=== PATIENT | female | born 1965 | race Caucasian/White ===

== ENCOUNTER 2018-04-29 10:53 | Day surgery (SDC) | payer MEDICARE ==
[2018-04-29] MEDS ORDERED: Xylocaine-Mpf 2% 5 Ml Vial IJ ONE (10:54)
[2018-04-29] MEDS ORDERED: DIPRIVAN 200 MG/20 ML IV ONE (10:54)
[2018-04-29] MEDS ORDERED: Depo-Medrol 40 MG/ML IM ONE (10:54)
[2018-04-29] MEDS ORDERED: Lactated Ringers 1,000 ML IV ONE (14:52)
--- NOTE | 2018-04-29 16:02 | XRAY ---
32 seconds fluoroscopy time in surgery for bilateral L3-S1 MBB.
--- NOTE | 2018-04-30 14:38 | XRAY ---
Intraoperative fluoroscopy was provided for 32 seconds. Posterior fusion hardware is seen at L3- L4. Moderate degenerative disc disease is seen at L2-L3. 2 intraoperative C-arm images were obtained. Posterior spinal needle tips are seen projected over the expected course of the left and right L3-S1 nerve roots. Correlate with intraoperative findings/report.
== END 2018-04-29 13:35 | disposition home or self-care (01) ==
LOC: SDC-PAIN 10:53
PROVIDERS: ATTEND Psychiatry & Neurology Pain Medicine
DX: M47.817 Spondylosis without myelopathy or radiculopathy, lumbosacral region (principal)
CPT/HCPCS: 64493; 64494; 64495; 72020; 77003; J1030; J2704

== ENCOUNTER 2018-05-20 11:50 | Day surgery (SDC) | payer MEDICARE ==
[2018-05-20] MEDS ORDERED: DIPRIVAN 200 MG/20 ML IV ONE (11:51)
[2018-05-20] MEDS ORDERED: Depo-Medrol 40 MG/ML IM ONE (11:51)
[2018-05-20] MEDS ORDERED: Marcaine 0.5% SDV 10 ML IJ ONE (11:51)
[2018-05-20] MEDS ORDERED: Lactated Ringers 1,000 ML IV ONE (14:53)
--- NOTE | 2018-05-20 14:54 | XRAY ---
Indication: Bilateral SI joint injection. Intraoperative fluoroscopy was provided for 12 seconds. 4 digital spot images submitted for interpretation demonstrates a posterior needle tip projecting over the inferior left and right SI joints. Correlate with intraoperative findings/report.
--- NOTE | 2018-05-20 14:55 | XRAY ---
12 seconds fluoroscopy time in surgery for bilateral SI joint injections.
== END 2018-05-20 14:00 | disposition home or self-care (01) ==
LOC: SDC-PAIN 11:50
PROVIDERS: ATTEND Psychiatry & Neurology Pain Medicine
DX: M46.1 Sacroiliitis, not elsewhere classified (principal)
CPT/HCPCS: 27096; 72020; 77002; J1030; J2704; G0260

== ENCOUNTER 2018-07-08 09:02 | Day surgery (SDC) | payer MEDICARE ==
[2018-07-08] MEDS ORDERED: Sodium Chloride 0.9(Preservative Free) 10 ML IJ ONE (09:03)
[2018-07-08] MEDS ORDERED: DIPRIVAN 200 MG/20 ML IV ONE (09:03)
[2018-07-08] MEDS ORDERED: Depo-Medrol 40 MG/ML IM ONE (09:03)
[2018-07-08] MEDS ORDERED: Xylocaine 1% Vial 30 ML PF IJ ONE (09:03)
[2018-07-08] MEDS ORDERED: Lactated Ringers 1,000 ML IV ONE (12:03)
--- NOTE | 2018-07-08 12:17 | XRAY ---
29 seconds fluoroscopy time in surgery for L5-S1 KATHRYN.
--- NOTE | 2018-07-08 12:17 | XRAY ---
Indication: L5-S1 KATHRYN. Intraoperative fluoroscopy was provided for 29 seconds. 2 digital spot images submitted for interpretation demonstrates midline posterior spinal needle tip projecting posterior to the L5-S1 interspace. Correlate with intraoperative findings/report. Incidental L3-L4 posterior spinal hardware.
[2018-07-08] MEDS ORDERED: TORAdol 30 mg Injection ONE (12:19)
== END 2018-07-08 12:32 | disposition home or self-care (01) ==
LOC: SDC-PAIN 09:02
PROVIDERS: ATTEND Psychiatry & Neurology Pain Medicine
DX: M54.16 Radiculopathy, lumbar region (principal); Z79.899 Other long term (current) drug therapy
CPT/HCPCS: 72020; 77003; J1030; J1885; J2001; J2704

== ENCOUNTER 2018-10-21 11:58 | Day surgery (SDC) | payer MEDICARE ==
[2018-10-21] MEDS ORDERED: Ketamine HCl 50 MG/ML IV ONE (11:59)
[2018-10-21] MEDS ORDERED: DIPRIVAN 200 MG/20 ML IV ONE (11:59)
[2018-10-21] MEDS ORDERED: Sodium Chloride 0.9(Preservative Free) 10 ML IJ ONE (11:59)
[2018-10-21] MEDS ORDERED: Depo-Medrol 40 MG/ML IM ONE (11:59)
[2018-10-21] MEDS ORDERED: Lactated Ringers 1,000 ML IV ONE (14:24)
--- NOTE | 2018-10-21 16:27 | XRAY ---
37 seconds fluoroscopy time in surgery for bilateral L3 KATHRYN.
--- NOTE | 2018-10-22 05:14 | XRAY ---
Indication: Bilateral L3 KATHRYN. Intraoperative fluoroscopy was provided for 37 seconds. There appears to be evidence of posterior surgical fusion at L3-L4 with short paired metallic rods and 4 pedicle screws. 6 digital spot images submitted for interpretation demonstrate posterior needle tips projected over the expected course of the right and left L3 nerve roots. A small of contrast has been injected for needle tip placement. Correlate with intraoperative findings/or.
== END 2018-10-21 13:50 | disposition home or self-care (01) ==
LOC: SDC-PAIN 11:58
PROVIDERS: ATTEND Psychiatry & Neurology Pain Medicine
DX: M54.16 Radiculopathy, lumbar region (principal); K21.9 Gastro-esophageal reflux disease without esophagitis; E03.9 Hypothyroidism, unspecified; G47.30 Sleep apnea, unspecified; E78.5 Hyperlipidemia, unspecified; N18.9 Chronic kidney disease, unspecified; F32.9 Major depressive disorder, single episode, unspecified; D64.9 Anemia, unspecified
CPT/HCPCS: 64483; 72020; 77003; 84703; J1030; J2704; Q9966

== ENCOUNTER 2019-06-16 15:05 | Day surgery (SDC) | payer MEDICARE ==
[2019-06-16] MEDS ORDERED: Xylocaine 1% Vial 30 ML PF IJ ONE (15:06)
[2019-06-16] MEDS ORDERED: Marcaine 0.5% SDV 10 ML IJ ONE (15:06)
[2019-06-16] MEDS ORDERED: Depo-Medrol 40 MG/ML IM ONE (15:06)
--- NOTE | 2019-06-16 16:56 | XRAY ---
Indication: Right hip and greater trochanter bursa injections. Intraoperative fluoroscopy was provided for 28 seconds. 2 digital spot images submitted for interpretation demonstrates needle tip just lateral to the right femur head and a second needle tip just lateral to the greater trochanter. Small amount of contrast injected for both needle tip placement. Correlate with intraoperative findings/report.
--- NOTE | 2019-06-16 16:59 | XRAY ---
28 seconds fluoroscopy time in surgery for right hip bursa and intertrochanteric injection.
== END 2019-06-16 16:40 | disposition home or self-care (01) ==
LOC: SDC-PAIN 15:05
PROVIDERS: ATTEND Psychiatry & Neurology Pain Medicine
DX: M70.61 Trochanteric bursitis, right hip (principal); M16.11 Unilateral primary osteoarthritis, right hip; M25.551 Pain in right hip; N18.9 Chronic kidney disease, unspecified; K21.9 Gastro-esophageal reflux disease without esophagitis; E03.9 Hypothyroidism, unspecified; G47.30 Sleep apnea, unspecified; E78.5 Hyperlipidemia, unspecified; D64.9 Anemia, unspecified; F41.8 Other specified anxiety disorders; Z79.899 Other long term (current) drug therapy
CPT/HCPCS: 20610; 73502; 77002; 84703; J1030; J2001; Q9966

== ENCOUNTER 2019-07-14 12:41 | Day surgery (SDC) | payer MEDICARE ==
[2019-07-14] MEDS ORDERED: Depo-Medrol 40 MG/ML IM ONE (12:42)
[2019-07-14] MEDS ORDERED: Marcaine 0.5% SDV 10 ML IJ ONE (12:42)
[2019-07-14] MEDS ORDERED: Ketamine HCl 50 MG/ML ONE (13:50)
[2019-07-14] MEDS ORDERED: DIPRIVAN 200 MG/20 ML IV ONE (13:50)
[2019-07-14] MEDS ORDERED: Lactated Ringers 1,000 ML IV ONE (14:53)
--- NOTE | 2019-07-14 15:00 | XRAY ---
Indication: Bilateral L4-S1 RFA. Intraoperative fluoroscopy was provided for 7 seconds. Single digital spot image submitted for interpretation demonstrates posterior needle tips projecting over the expected course of the left and right L4-S1 nerve roots. Correlate with intraoperative findings/report. Incidental L3-L4 bilateral posterior fusion hardware and intervertebral spacer.
--- NOTE | 2019-07-14 16:24 | XRAY ---
7 seconds fluoroscopy time in surgery for bilateral L4-S1 MBB.
== END 2019-07-14 14:17 | disposition home or self-care (01) ==
LOC: SDC-PAIN 12:41
PROVIDERS: ATTEND Psychiatry & Neurology Pain Medicine
DX: M47.816 Spondylosis without myelopathy or radiculopathy, lumbar region (principal); K21.9 Gastro-esophageal reflux disease without esophagitis; E03.9 Hypothyroidism, unspecified; D64.9 Anemia, unspecified; E78.5 Hyperlipidemia, unspecified; N18.9 Chronic kidney disease, unspecified; G47.30 Sleep apnea, unspecified; Z79.899 Other long term (current) drug therapy
CPT/HCPCS: 64493; 64494; 72020; 77002; 84703; J1030; J2704

== ENCOUNTER 2019-08-11 08:37 | Day surgery (SDC) | payer MEDICARE ==
[2019-08-11] MEDS ORDERED: Marcaine 0.5% SDV 10 ML IM ONE (08:38)
[2019-08-11] MEDS ORDERED: Depo-Medrol 40 MG/ML IM ONE (08:38)
[2019-08-11] MEDS ORDERED: Xylocaine 1% Vial 30 ML PF IJ ONE (08:38)
[2019-08-11] MEDS ORDERED: Ketamine HCl 50 MG/ML ONE (10:23)
[2019-08-11] MEDS ORDERED: DIPRIVAN 200 MG/20 ML IV ONE (10:23)
--- NOTE | 2019-08-11 12:21 | XRAY ---
Indication: Left L4-S1 CASTING MOLDER. Intraoperative fluoroscopy was provided for 25 seconds. 3 digital spot images submitted for interpretation demonstrates posterior needle tips projecting over the expected course of the left L4-S1 nerve roots. Correlate with intraoperative findings/report. Incidental partially visualized bilateral L3-L4 fusion hardware.
--- NOTE | 2019-08-11 12:30 | XRAY ---
25 seconds fluoroscopy time in surgery for left L4-S1 RFA.
[2019-08-11] MEDS ORDERED: Lactated Ringers 1,000 ML IV ONE (14:44)
== END 2019-08-11 10:52 | disposition home or self-care (01) ==
LOC: SDC-PAIN 08:37
PROVIDERS: ATTEND Psychiatry & Neurology Pain Medicine
DX: M47.816 Spondylosis without myelopathy or radiculopathy, lumbar region (principal); M47.817 Spondylosis without myelopathy or radiculopathy, lumbosacral region; K21.9 Gastro-esophageal reflux disease without esophagitis; D64.9 Anemia, unspecified; E03.9 Hypothyroidism, unspecified; G47.30 Sleep apnea, unspecified; E78.5 Hyperlipidemia, unspecified; N18.9 Chronic kidney disease, unspecified; F41.8 Other specified anxiety disorders; Z79.899 Other long term (current) drug therapy
CPT/HCPCS: 64635; 64636; 72100; 77002; 84703; J1030; J2001; J2704

== ENCOUNTER 2019-10-20 10:31 | Day surgery (SDC) | payer MEDICARE ==
[2019-10-20] MEDS ORDERED: Xylocaine 1% Vial 30 ML PF IJ ONE (10:32)
[2019-10-20] MEDS ORDERED: Marcaine 0.5% SDV 10 ML IJ ONE (10:32)
[2019-10-20] MEDS ORDERED: Depo-Medrol 40 MG/ML IM ONE (10:32)
[2019-10-20] MEDS ORDERED: DIPRIVAN 200 MG/20 ML IV ONE (11:32)
[2019-10-20] MEDS ORDERED: Ketamine HCl 50 MG/ML ONE (11:32)
[2019-10-20] MEDS ORDERED: Lactated Ringers 1,000 ML IV ONE (15:17)
--- NOTE | 2019-10-20 16:41 | XRAY ---
26 seconds fluoroscopy time in surgery for right L4-S1 RFA.
--- NOTE | 2019-10-23 19:26 | XRAY ---
Indication: Right L4-S1 RFA. Intraoperative fluoroscopy was provided for 26 seconds. 3 digital spot images reveal evidence of a posterior surgical fixation device with 4 pedicle screws at L3-L4. The images also demonstrate posterior needle tips projected over the expected course of the right L4-S1 nerve roots. Correlate with intraoperative findings/report.
== END 2019-10-20 12:05 | disposition home or self-care (01) ==
LOC: SDC-PAIN 10:31
PROVIDERS: ATTEND Psychiatry & Neurology Pain Medicine
DX: M47.816 Spondylosis without myelopathy or radiculopathy, lumbar region (principal); E78.5 Hyperlipidemia, unspecified; G47.30 Sleep apnea, unspecified; E03.9 Hypothyroidism, unspecified; K21.9 Gastro-esophageal reflux disease without esophagitis; D64.9 Anemia, unspecified; Z79.899 Other long term (current) drug therapy
CPT/HCPCS: 64635; 64636; 72100; 77002; 84703; J1030; J2001; J2704

== ENCOUNTER 2020-05-03 13:20 | Day surgery (SDC) | payer MEDICARE ==
[2020-05-03] MEDS ORDERED: Depo-Medrol 40 MG/ML IM ONE (13:21)
[2020-05-03] MEDS ORDERED: Xylocaine 1% Vial 30 ML PF IJ ONE (13:21)
[2020-05-03] MEDS ORDERED: BUPIVACAINE 0.5% VIAL IJ ONE (13:21)
[2020-05-03] MEDS ORDERED: Lactated Ringers 1,000 ML IV ONE (16:10)
--- NOTE | 2020-05-03 16:47 | XRAY ---
Indication: Right hip bursa and intra-articular injections. Intraoperative fluoroscopy was provided for 30 seconds. 2 digital spot images submitted for interpretation demonstrates needle tip just lateral to the right femur head and a second needle tip lateral to the greater trochanter. Small amount of contrast injected for both needle tip placement. Correlate with intraoperative findings/report.
--- NOTE | 2020-05-03 16:54 | XRAY ---
30 seconds fluoroscopy time in surgery for the right hip greater trochanter and intra-articular injections.
== END 2020-05-03 16:27 | disposition home or self-care (01) ==
LOC: SDC-PAIN 13:20
PROVIDERS: ATTEND Psychiatry & Neurology Pain Medicine
DX: M70.61 Trochanteric bursitis, right hip (principal); E78.5 Hyperlipidemia, unspecified; E03.9 Hypothyroidism, unspecified; G47.30 Sleep apnea, unspecified; D64.9 Anemia, unspecified; K21.9 Gastro-esophageal reflux disease without esophagitis; N18.9 Chronic kidney disease, unspecified; Z79.899 Other long term (current) drug therapy
CPT/HCPCS: 20610; 73502; 77002; J1030; J2001; Q9966

== ENCOUNTER 2020-08-09 11:32 | Day surgery (SDC) | payer MEDICARE ==
[2020-08-09] MEDS ORDERED: Depo-Medrol 40 MG/ML IM ONE (11:33)
[2020-08-09] MEDS ORDERED: BUPIVACAINE 0.5% VIAL IJ ONE (11:33)
[2020-08-09] MEDS ORDERED: DIPRIVAN 200 MG/20 ML IV ONE (12:06)
[2020-08-09] MEDS ORDERED: Ketamine HCl 50 MG/ML ONE (12:06)
--- NOTE | 2020-08-09 13:32 | XRAY ---
Indication: Right greater trochanter injection. Intraoperative fluoroscopy provided for 17 seconds. Single digital spot image submitted for interpretation demonstrates needle tip just lateral to the right greater trochanter. Small amount of contrast injected for needle tip placement. Correlate with intraoperative findings/report.
--- NOTE | 2020-08-09 13:34 | XRAY ---
17 seconds fluoroscopy time in surgery for injection of the greater trochanter of the right hip.
[2020-08-09] MEDS ORDERED: Lactated Ringers 1,000 ML IV ONE (16:14)
== END 2020-08-09 12:45 | disposition home or self-care (01) ==
LOC: SDC-PAIN 11:32
PROVIDERS: ATTEND Psychiatry & Neurology Pain Medicine
DX: M70.61 Trochanteric bursitis, right hip (principal); K21.9 Gastro-esophageal reflux disease without esophagitis; D64.9 Anemia, unspecified; E03.9 Hypothyroidism, unspecified; G47.30 Sleep apnea, unspecified; E78.5 Hyperlipidemia, unspecified; F32.9 Major depressive disorder, single episode, unspecified; N18.9 Chronic kidney disease, unspecified; Z79.899 Other long term (current) drug therapy
CPT/HCPCS: 20610; 73501; 77002; J1030; J2704; Q9966

== ENCOUNTER 2020-09-27 10:46 | Day surgery (SDC) | payer MEDICARE ==
[2020-09-27] MEDS ORDERED: Depo-Medrol 40 MG/ML IM ONE (10:47)
[2020-09-27] MEDS ORDERED: BUPIVACAINE 0.5% VIAL IJ ONE (10:47)
[2020-09-27] MEDS ORDERED: DIPRIVAN 200 MG/20 ML IV ONE ×2 (12:13→12:20)
--- NOTE | 2020-09-27 16:12 | XRAY ---
12 seconds fluoroscopy time in surgery for left SI joint injection.
[2020-09-27] MEDS ORDERED: Lactated Ringers 1,000 ML IV ONE (16:40)
--- NOTE | 2020-09-28 22:14 | XRAY ---
Indication: Left SI joint injection. Intraoperative fluoroscopy was provided for 12 seconds. 2 digital spot images submitted for interpretation demonstrate a posterior needle tip projected over the inferior aspect of the left sacroiliac joint. Correlate with intraoperative findings/report.
== END 2020-09-27 12:25 | disposition home or self-care (01) ==
LOC: SDC-PAIN 10:46
PROVIDERS: ATTEND Psychiatry & Neurology Pain Medicine
DX: M46.1 Sacroiliitis, not elsewhere classified (principal); E78.5 Hyperlipidemia, unspecified; N18.9 Chronic kidney disease, unspecified; G47.30 Sleep apnea, unspecified; K21.9 Gastro-esophageal reflux disease without esophagitis; E03.9 Hypothyroidism, unspecified; Z79.899 Other long term (current) drug therapy
CPT/HCPCS: 27096; 72020; 77002; G0260; J1030; J2704

== ENCOUNTER 2020-11-22 15:16 | Day surgery (SDC) | payer MEDICARE ==
[2020-11-22] MEDS ORDERED: BUPIVACAINE 0.5% VIAL IJ ONE (15:17)
[2020-11-22] MEDS ORDERED: Xylocaine 1% Vial 30 ML PF IJ ONE (15:17)
[2020-11-22] MEDS ORDERED: Depo-Medrol 40 MG/ML IM ONE (15:17)
--- NOTE | 2020-11-23 11:35 | XRAY ---
32 seconds fluoroscopy time in surgery for bilateral injections of the greater trochanters of the hips.
--- NOTE | 2020-11-26 18:06 | XRAY ---
Indication: Bilateral greater trochanteric bursa injections. Intraoperative fluoroscopy was provided for 32 seconds. 3 digital spot images submitted for interpretation demonstrate a needle tip projected over the lateral margin of the greater trochanter of the right hip. Some contrast has been injected for needle tip placement. In addition, a needle tip is seen projected over the lateral margin of the greater trochanter of the left hip. Some contrast has been injected for needle tip placement. Correlate with intraoperative findings/report.
== END 2020-11-22 17:23 | disposition home or self-care (01) ==
LOC: SDC-PAIN 15:16
PROVIDERS: ATTEND Psychiatry & Neurology Pain Medicine
DX: M70.62 Trochanteric bursitis, left hip (principal); M70.61 Trochanteric bursitis, right hip; Z79.899 Other long term (current) drug therapy; D64.9 Anemia, unspecified; E03.9 Hypothyroidism, unspecified; G47.30 Sleep apnea, unspecified; E78.5 Hyperlipidemia, unspecified; N18.9 Chronic kidney disease, unspecified; F32.9 Major depressive disorder, single episode, unspecified; K58.9 Irritable bowel syndrome, unspecified
CPT/HCPCS: 20610; 73521; 77002; J1030; J2001; Q9966

== ENCOUNTER 2021-01-17 12:17 | Day surgery (SDC) | payer MEDICARE ==
[2021-01-17] MEDS ORDERED: BUPIVACAINE 0.5% VIAL IJ ONE (12:18)
[2021-01-17] MEDS ORDERED: DIPRIVAN 200 MG/20 ML IV ONE (13:29)
[2021-01-17] MEDS ORDERED: Lactated Ringers 1,000 ML IV ONE (13:49)
--- NOTE | 2021-01-17 17:00 | XRAY ---
17 seconds fluoroscopy time in surgery for left L4-S1 MBB.
--- NOTE | 2021-01-19 09:47 | XRAY ---
Indication: Left L4-S1 MBB. Intraoperative fluoroscopy was provided for 17 seconds. A single digital spot image submitted for interpretation demonstrates posterior spinal needle tips projected over the expected course of the left and right L4-S1 nerve roots. Correlate with intraoperative findings/report. Incidentally, orthopedic fusion hardware is seen at L3-L4.
== END 2021-01-17 13:55 | disposition home or self-care (01) ==
LOC: SDC-PAIN 12:17
PROVIDERS: ATTEND Psychiatry & Neurology Pain Medicine
DX: M47.816 Spondylosis without myelopathy or radiculopathy, lumbar region (principal); Z79.899 Other long term (current) drug therapy
CPT/HCPCS: 64493; 64494; 72020; 77002; J2704

== ENCOUNTER 2021-02-28 09:25 | Day surgery (SDC) | payer MEDICARE ==
[2021-02-28] MEDS ORDERED: BUPIVACAINE 0.5% VIAL IJ ONE (09:26)
[2021-02-28] MEDS ORDERED: Xylocaine 1% Vial 30 ML PF IJ ONE (09:26)
[2021-02-28] MEDS ORDERED: Depo-Medrol 40 MG/ML IM ONE (09:26)
[2021-02-28] MEDS ORDERED: DIPRIVAN 200 MG/20 ML IV ONE ×2 (11:02→11:20)
--- NOTE | 2021-02-28 13:22 | XRAY ---
Indication: Left L4-S1 RFA. Intraoperative fluoroscopy provided for 42 seconds. 3 digital spot images submitted for interpretation demonstrates posterior needle tips projecting over the expected left L4-S1 nerve roots. Correlate with intraoperative findings/report. Partially visualized bilateral L3-L4 posterior spinal fusion hardware.
--- NOTE | 2021-02-28 14:23 | XRAY ---
42 seconds of fluoroscopy was used in surgery for a left L4-S1 RFA.
[2021-02-28] MEDS ORDERED: Lactated Ringers 1,000 ML IV ONE (17:26)
== END 2021-02-28 11:40 | disposition home or self-care (01) ==
LOC: SDC-PAIN 09:25
PROVIDERS: ATTEND Psychiatry & Neurology Pain Medicine
DX: M47.816 Spondylosis without myelopathy or radiculopathy, lumbar region (principal); Z79.899 Other long term (current) drug therapy
CPT/HCPCS: 64635; 64636; 72100; 77002; J1030; J2001; J2704

== ENCOUNTER 2021-04-13 11:12 | Day surgery (SDC) | payer MEDICARE ==
[2021-04-13] MEDS ORDERED: BUPIVACAINE 0.5% VIAL IJ ONE (11:13)
[2021-04-13] MEDS ORDERED: Depo-Medrol 40 MG/ML IM ONE (11:13)
[2021-04-13] MEDS ORDERED: Sodium Chloride 0.9% 10 ML FLUSH Syringe IJ ONE (11:13)
[2021-04-13] MEDS ORDERED: Lactated Ringers 1,000 ML IV ONE (12:12)
[2021-04-13] MEDS ORDERED: DIPRIVAN 200 MG/20 ML IV ONE (12:14)
--- NOTE | 2021-04-13 14:09 | XRAY ---
Indication: Left greater trochanter bursa injection. Intraoperative fluoroscopy provided for 8 seconds. Single digital spot image obtained prone demonstrates needle tip lateral to the left greater trochanter. Small amount of contrast injected for needle tip placement. Correlate with intraoperative findings/report.
--- NOTE | 2021-04-13 14:09 | XRAY ---
Indication: Left L4-S1 transforaminal KATHRYN. Intraoperative fluoroscopy provided for 23 seconds. 4 digital spot images submitted for interpretation demonstrates posterior needle tips projecting over the left L3 and L4 nerve roots. Small amount of contrast injected for both needle tip placement. Correlate with intraoperative findings/report. Incidental bilateral L3-L4 posterior spinal fusion hardware.
--- NOTE | 2021-04-13 14:13 | XRAY ---
23 seconds fluoroscopy time in surgery for left L4-S1 transforaminal KATHRYN.
--- NOTE | 2021-04-13 14:13 | XRAY ---
8 seconds fluoroscopy time in surgery for injection of the greater trochanter of the left hip.
== END 2021-04-13 13:00 | disposition home or self-care (01) ==
LOC: SDC-PAIN 11:12
PROVIDERS: ATTEND Psychiatry & Neurology Pain Medicine
DX: M54.16 Radiculopathy, lumbar region (principal); M16.12 Unilateral primary osteoarthritis, left hip; K21.9 Gastro-esophageal reflux disease without esophagitis; D64.9 Anemia, unspecified; E03.9 Hypothyroidism, unspecified; E78.5 Hyperlipidemia, unspecified; F41.9 Anxiety disorder, unspecified; F32.9 Major depressive disorder, single episode, unspecified; N18.9 Chronic kidney disease, unspecified; Z79.899 Other long term (current) drug therapy
CPT/HCPCS: 20610; 64483; 64484; 72100; 73501; 77002; 77003; J1030; J2704; Q9966

== ENCOUNTER 2021-08-08 08:11 | Day surgery (SDC) | payer MEDICARE ==
[2021-08-08] MEDS ORDERED: Depo-Medrol 40 MG/ML IM ONE (09:08)
[2021-08-08] MEDS ORDERED: BUPIVACAINE 0.5% VIAL IJ ONE (09:08)
[2021-08-08] MEDS ORDERED: Lactated Ringers 1,000 ML IV ONE (09:30)
[2021-08-08] MEDS ORDERED: DIPRIVAN 200 MG/20 ML IV ONE ×2 (09:44→09:56)
--- NOTE | 2021-08-08 11:28 | XRAY ---
Indication: Left T8-T11 intercostal nerve block. Intraoperative fluoroscopy provided for 35 seconds. 3 digital spot image submitted for interpretation demonstrates needle tips projecting over the inferior left 8-11 ribs laterally. Small amount of contrast injected for needle tip placement. Correlate with intraoperative findings/report.
--- NOTE | 2021-08-08 12:30 | XRAY ---
35 seconds of fluoroscopy was used in surgery for a left intercostal nerve block of T8-T11.
== END 2021-08-08 10:18 | disposition home or self-care (01) ==
LOC: SDC-PAIN 08:11
PROVIDERS: ATTEND Psychiatry & Neurology Pain Medicine
DX: R07.81 Pleurodynia (principal); D64.9 Anemia, unspecified; Z79.899 Other long term (current) drug therapy
CPT/HCPCS: 64420; 64421; 72020; 77002; J1030; J2704; Q9966

== ENCOUNTER 2021-12-26 11:41 | Day surgery (SDC) | payer MEDICARE ==
[~2021-12-26 11:41] MED LIST: DIPRIVAN 200 MG/20 ML IV ONE
[2021-12-26] MEDS ORDERED: Depo-Medrol 40 MG/ML IM ONE (11:42)
[2021-12-26] MEDS ORDERED: Lactated Ringers 1,000 ML IV ONE (11:42)
[2021-12-26] MEDS ORDERED: Sodium Chloride 0.9(Preservative Free) 10 ML IJ ONE (11:42)
[2021-12-26] MEDS ORDERED: Marcaine Mpf 0.5% Vial 30 Ml IJ ONE (11:42)
[2021-12-26] MEDS ORDERED: DIPRIVAN 200 MG/20 ML IV ONE (13:34)
--- NOTE | 2021-12-26 16:10 | XRAY ---
Indication: Left L3-L5 transforaminal KATHRYN. Intraoperative fluoroscopy provided for 37 seconds. 4 digital spot image submitted for interpretation demonstrates posterior needle tips projecting over the expected left L3 and L4 nerve roots. Small amount of contrast injected for needle tip placement. Correlate with intraoperative findings/report. Incidental bilateral posterior L3-L4 fusion hardware.
--- NOTE | 2021-12-26 16:10 | XRAY ---
Indication: Bilateral greater trochanter bursa injection. Intraoperative fluoroscopy provided for 12 seconds. 2 digital spot image obtained prone submitted for interpretation demonstrates needle tip projecting just lateral to the left and right greater trochanters. Small amount of contrast injected for needle tip placement. Correlate with intraoperative findings/report.
--- NOTE | 2021-12-26 16:31 | XRAY ---
12 seconds of fluoroscopy was used in surgery for bilateral hips greater trochanteric bursa injections.
--- NOTE | 2021-12-26 16:32 | XRAY ---
37 seconds of fluoroscopy was used in surgery for a left L3-L5 transforaminal KATHRYN.
== END 2021-12-26 14:02 | disposition home or self-care (01) ==
LOC: SDC-PAIN 11:41
PROVIDERS: ATTEND Psychiatry & Neurology Pain Medicine
DX: M70.62 Trochanteric bursitis, left hip (principal); M70.61 Trochanteric bursitis, right hip; M54.16 Radiculopathy, lumbar region; Z79.899 Other long term (current) drug therapy
CPT/HCPCS: 20610; 64483; 72100; 73521; 77002; 77003; J1030; J2704; Q9966

== ENCOUNTER 2022-05-08 12:47 | Day surgery (SDC) | payer MEDICARE ==
[2022-05-08] MEDS ORDERED: Depo-Medrol 40 MG/ML IM ONE (12:48)
[2022-05-08] MEDS ORDERED: BUPIVACAINE 0.5% VIAL IJ ONE (12:48)
[2022-05-08] MEDS ORDERED: DIPRIVAN 200 MG/20 ML IV ONE (16:09)
[2022-05-08] MEDS ORDERED: Lactated Ringers 1,000 ML IV ONE (16:35)
--- NOTE | 2022-05-08 16:56 | XRAY ---
Indication: Bilateral SI joint injection. Intraoperative fluoroscopy provided for 19 seconds. 5 digital spot images submitted for interpretation demonstrates posterior needle tip projecting over the left and right SI joint. Correlate with intraoperative findings/report.
--- NOTE | 2022-05-08 20:24 | XRAY ---
19 seconds of fluoroscopy was used in surgery for bilateral SI joints injections.
== END 2022-05-08 16:40 | disposition home or self-care (01) ==
LOC: SDC-PAIN 12:47
PROVIDERS: ATTEND Psychiatry & Neurology Pain Medicine
DX: M46.1 Sacroiliitis, not elsewhere classified (principal); Z79.899 Other long term (current) drug therapy
CPT/HCPCS: 01992; 27096; 72202; 77002; G0260; J1030; J2704

== ENCOUNTER 2022-08-28 08:23 | Day surgery (SDC) | payer MEDICARE ==
[2022-08-28] MEDS ORDERED: Depo-Medrol 40 MG/ML IM ONE (08:24)
[2022-08-28] MEDS ORDERED: LIDOCAINE HCL 1% 50 MG/5 ML VL PF IJ ONE (08:24)
[2022-08-28] MEDS ORDERED: BUPIVACAINE 0.5% VIAL IJ ONE (08:24)
[2022-08-28] MEDS ORDERED: DIPRIVAN 200 MG/20 ML IV ONE (09:44)
--- NOTE | 2022-08-28 12:18 | XRAY ---
Indication: Left L4-S1 RFA. Intraoperative fluoroscopy provided for 23 seconds. 4 digital spot image submitted for interpretation demonstrates posterior needle tips projecting over the expected left L4-S1 nerve roots. Correlate with intraoperative findings/report. Incidental incompletely visualized posterior L3-L4 fusion hardware.
--- NOTE | 2022-08-28 12:44 | XRAY ---
23 seconds of fluoroscopy was used in surgery for a left L4-S1 RFA.
[2022-08-28] MEDS ORDERED: Lactated Ringers 1,000 ML IV ONE (13:15)
== END 2022-08-28 10:25 | disposition home or self-care (01) ==
LOC: SDC-PAIN 08:23
PROVIDERS: ATTEND Psychiatry & Neurology Pain Medicine
DX: M47.816 Spondylosis without myelopathy or radiculopathy, lumbar region (principal); Z79.899 Other long term (current) drug therapy
CPT/HCPCS: 64635; 64636; 72100; 77002; 82947; J1030; J2001; J2704

== ENCOUNTER 2022-09-04 08:43 | Day surgery (SDC) | payer MEDICARE ==
[2022-09-04] MEDS ORDERED: BUPIVACAINE 0.5% VIAL IJ ONE (08:44)
[2022-09-04] MEDS ORDERED: Depo-Medrol 40 MG/ML IM ONE (08:44)
[2022-09-04] MEDS ORDERED: LIDOCAINE HCL 1% 50 MG/5 ML VL PF IJ ONE (08:44)
[2022-09-04] MEDS ORDERED: Lactated Ringers 1,000 ML IV ONE ×2 (10:38)
[2022-09-04] MEDS ORDERED: DIPRIVAN 200 MG/20 ML IV ONE (10:51)
--- NOTE | 2022-09-04 12:12 | XRAY ---
Indication: Right L4-S1 RFA. Intraoperative fluoroscopy provided for 30 seconds. 4 digital spot image submitted for interpretation demonstrates posterior needle tips projecting over the expected right L4-S1 nerve roots. Correlate with intraoperative findings/report. Incidental incompletely visualized posterior L3-L4 fusion hardware.
--- NOTE | 2022-09-04 12:14 | XRAY ---
30 seconds of fluoroscopy was used in surgery for a right L4-S1 RFA.
== END 2022-09-04 11:30 | disposition home or self-care (01) ==
LOC: SDC-PAIN 08:43
PROVIDERS: ATTEND Psychiatry & Neurology Pain Medicine
DX: M47.816 Spondylosis without myelopathy or radiculopathy, lumbar region (principal); Z79.899 Other long term (current) drug therapy
CPT/HCPCS: 64635; 64636; 72100; 77002; 82947; J1030; J2001; J2704

== ENCOUNTER 2022-12-25 12:20 | Day surgery (SDC) | payer MEDICARE ==
[2022-12-25] MEDS ORDERED: BUPIVACAINE 0.5% VIAL IJ ONE (12:21)
[2022-12-25] MEDS ORDERED: Depo-Medrol 40 MG/ML IM ONE (12:21)
[2022-12-25] MEDS ORDERED: DIPRIVAN 200 MG/20 ML IV ONE (14:18)
--- NOTE | 2022-12-25 15:19 | XRAY ---
Indication: Bilateral SI joint injection. Intraoperative fluoroscopy provided for 17 seconds. 4 digital spot image submitted for interpretation demonstrates posterior needle tip projecting over the left and right SI joint. Correlate with intraoperative findings/report.
--- NOTE | 2022-12-25 15:21 | XRAY ---
17 seconds of fluoroscopy was used in surgery for a bilateral sacroiliac joint injection.
[2022-12-25] MEDS ORDERED: Lactated Ringers 1,000 ML IV ONE (15:26)
== END 2022-12-25 14:45 | disposition home or self-care (01) ==
LOC: SDC-PAIN 12:20
PROVIDERS: ATTEND Psychiatry & Neurology Pain Medicine
DX: M46.1 Sacroiliitis, not elsewhere classified (principal); E11.9 Type 2 diabetes mellitus without complications; Z79.899 Other long term (current) drug therapy
CPT/HCPCS: 01992; 27096; 72202; 77002; 82947; G0260; J1030; J2704

== ENCOUNTER 2023-06-25 09:50 | Day surgery (SDC) | payer MEDICARE ==
[2023-06-25] MEDS ORDERED: Sodium Chloride 0.9(Preservative Free) 10 ML IJ ONE (09:51)
[2023-06-25] MEDS ORDERED: Decadron 4 MG INJ IV ONE (09:51)
[2023-06-25] MEDS ORDERED: DIPRIVAN 200 MG/20 ML IV ONE (11:46)
[2023-06-25] MEDS ORDERED: Hydromorphone 1 mg/ml Injection IJ ONE (12:00)
[2023-06-25] MEDS ORDERED: Hydromorphone 1 mg/ml Injection ONE ×2 (12:28→13:08)
--- NOTE | 2023-06-25 14:17 | XRAY ---
22 seconds of fluoroscopy was used in surgery for a left L3-L5 transforaminal KATHRYN.
--- NOTE | 2023-06-25 14:19 | XRAY ---
Indication: Left L3-L5 transforaminal KATHRYN. Intraoperative fluoroscopy provided for 22 seconds. 4 digital spot images submitted for interpretation demonstrates posterior needle tips projecting over the the left L3 and L4 nerve roots. Small amount of contrast injected for needle tip placement. Correlate with intraoperative findings/report. Incidental bilateral L3-L4 fusion hardware.
[2023-06-25] MEDS ORDERED: Lactated Ringers 1,000 ML IV ONE (14:22)
[2023-06-25 16:12] VITALS: BP 120/72; RESP 16; TEMP 98
[2023-06-25] MEDS ORDERED: NORCO 10-325 MG PO PRN (16:31)
[2023-06-25] MEDS ORDERED: LYRICA 100MG PO PRN (16:31)
[2023-06-25] MEDS ORDERED: NON-FORMULARY ITEM (Semaglutide [Ozempic] 0.25 MG/0.368 ML Pen.Injctr) SQ SCH (16:45)
[2023-06-25] MEDS ORDERED: VENTOLIN COMMON CANISTER IH PRN (16:53)
[2023-06-25 16:58] VITALS: PULSE 78
[2023-06-25] MEDS ORDERED: MEDICATION INTERVENTION MC SCH ×3 (17:15)
[2023-06-25] MEDS ORDERED: Sodium Chloride 0.9% 1000 ML 1,000 ML IV SCH (17:30)
[2023-06-25 18:48] VITALS: O2SAT 93
[2023-06-25] MEDS ORDERED: VENTOLIN COMMON CANISTER IH SCH (19:00)
[2023-06-25] MEDS ORDERED: NON-FORMULARY ITEM (Potassium Chloride [Klor-Con M10] 10 MEQ Tab.Er.Prt) PO SCH (22:00)
[2023-06-25] MEDS ORDERED: ZOCOR 20MG PO SCH (22:00)
[2023-06-25] MEDS ORDERED: Klor Con PO SCH (22:00)
[2023-06-25] MEDS ORDERED: LIPITOR 40MG PO SCH (22:00)
[2023-06-25] MEDS ORDERED: LIORESAL 10 MG PO SCH (22:00)
[2023-06-26] MEDS ORDERED: DUONEB 0.5-3 MG/3 ml Neb IH SCH (07:00)
[2023-06-26] MEDS ORDERED: [UNRECOGNIZED DRUG - REMARK] NS SCH (10:00)
[2023-06-26] MEDS ORDERED: Protonix 40MG Tablet PO SCH (10:00)
[2023-06-26] MEDS ORDERED: MYRBETRIQ PO SCH (10:00)
[2023-06-26] MEDS ORDERED: NON-FORMULARY ITEM (Magnesium Oxide [Magnesium] 400 MG Tablet) PO SCH (10:00)
[2023-06-26] MEDS ORDERED: NON-FORMULARY ITEM (Dapagliflozin Propanediol [Farxiga] 10 MG Tablet) PO SCH (10:00)
[2023-06-26] MEDS ORDERED: NON-FORMULARY ITEM (Famotidine [Pepcid] 40 MG Tablet) PO SCH (10:00)
[2023-06-26] MEDS ORDERED: Pepcid 20 MG PO SCH (10:00)
[2023-06-26] MEDS ORDERED: NON-FORMULARY ITEM (Esomeprazole Magnesium [Nexium] 40 MG Capsule.Dr) PO SCH (10:00)
[2023-06-26] MEDS ORDERED: Singulair 10 MG PO SCH (10:00)
[2023-06-26] MEDS ORDERED: Flonase NASAL NS SCH (10:00)
[2023-06-26] MEDS ORDERED: NON-FORMULARY ITEM (Sertraline Hcl [Zoloft] 100 MG Tablet) PO SCH (10:00)
[2023-06-26] MEDS ORDERED: MAG-OX 400 PO SCH (10:00)
[2023-06-26] MEDS ORDERED: SYNTHROID 100 MCG PO SCH (10:00)
[2023-06-26] MEDS ORDERED: ZOLOFT 50 MG TABLET PO SCH (10:00)
[2023-06-26] MEDS ORDERED: FEOSOL 325 MG PO SCH (10:00)
[2023-06-26] MEDS ORDERED: FERROUS GLUCONATE 236 MG PO SCH (10:00)
== END 2023-06-25 19:27 | disposition home or self-care (01) ==
LOC: SDC-PAIN 09:50 → MED SURG 15:20 → SDC-PAIN 19:27
PROVIDERS: ATTEND Psychiatry & Neurology Pain Medicine
DX: M54.16 Radiculopathy, lumbar region (principal); R06.03 Acute respiratory distress; E11.9 Type 2 diabetes mellitus without complications
CPT/HCPCS: 64483; 64484; 72100; 77003; 82947; 94762; J1100; J1170; J2704; Q9966

== ENCOUNTER 2023-12-03 09:47 | Day surgery (SDC) | payer MEDICARE ==
[2023-12-03] MEDS ORDERED: Depo-Medrol 40 MG/ML IM ONE (09:48)
[2023-12-03] MEDS ORDERED: LIDOCAINE HCL 1% 50 MG/5 ML VL PF IJ ONE (09:48)
[2023-12-03] MEDS ORDERED: Sodium Chloride 0.9(Preservative Free) 10 ML IJ ONE (09:48)
[2023-12-03] MEDS ORDERED: DIPRIVAN 200 MG/20 ML IV ONE (12:08)
[2023-12-03] MEDS ORDERED: Lactated Ringers 1,000 ML IV ONE (12:55)
--- NOTE | 2023-12-03 13:25 | XRAY ---
Indication: Lumbar KATHRYN. Intraoperative fluoroscopy provided for 10 seconds. 2 digital spot image submitted for interpretation demonstrate posterior needle tip projecting posterior to lumbosacral junction interspace. Small amount of contrast injected for needle tip placement. Correlate with intraoperative findings/report. Incidental bilateral L3-L4 fusion hardware
--- NOTE | 2023-12-03 14:13 | XRAY ---
10 seconds of fluoroscopy was used in surgery for a lumbar KATHRYN.
== END 2023-12-03 12:36 | disposition home or self-care (01) ==
LOC: SDC-PAIN 09:47
PROVIDERS: ATTEND Psychiatry & Neurology Pain Medicine
DX: M54.16 Radiculopathy, lumbar region (principal); E11.9 Type 2 diabetes mellitus without complications
CPT/HCPCS: 62323; 72100; 77003; 82947; J2001; J2704; Q9966

== ENCOUNTER 2024-03-31 15:37 | Day surgery (SDC) | payer MEDICARE ==
[2024-03-31] MEDS ORDERED: Depo-Medrol 40 MG/ML IM ONE (15:38)
[2024-03-31] MEDS ORDERED: BUPIVACAINE 0.5% VIAL IJ ONE (15:38)
[2024-03-31] MEDS ORDERED: LIDOCAINE HCL 1% AMPUL 5 ML IJ ONE (15:38)
--- NOTE | 2024-03-31 19:00 | XRAY ---
Indication: Left knee injection. Intraoperative fluoroscopy provided for 7 seconds. Single digital spot image submitted for interpretation demonstrates needle tip projecting over the left femur intercondylar notch. Small amount of contrast injected for needle tip placement. Correlate with intraoperative findings/report.
--- NOTE | 2024-04-01 08:52 | XRAY ---
7 seconds of fluoroscopy was used in surgery for a left intra-articular knee injection.
== END 2024-03-31 17:46 | disposition home or self-care (01) ==
LOC: SDC-PAIN 15:37
PROVIDERS: ATTEND Psychiatry & Neurology Pain Medicine
DX: M17.12 Unilateral primary osteoarthritis, left knee (principal); E11.9 Type 2 diabetes mellitus without complications
CPT/HCPCS: 20610; 73560; 77002; 82947; Q9966

== ENCOUNTER 2025-04-20 06:36 | Day surgery (SDC) | payer MEDICARE, OTHER ==
[2025-04-20] MEDS ORDERED: Sodium Chloride 0.9(Preservative Free) 10 ML IJ ONE (06:37)
[2025-04-20] MEDS ORDERED: LIDOCAINE HCL 1% 50 MG/5 ML VL IJ ONE (06:37)
[2025-04-20] MEDS ORDERED: propofoL IV ONE (07:56)
[2025-04-20] MEDS ORDERED: KEFZOL 1 GM ONE (08:12)
[2025-04-20] MEDS ORDERED: Lactated Ringers 1,000 ML IV ONE (09:46)
--- NOTE | 2025-04-20 12:03 | XRAY ---
Indication: Spinal cord stimulator trial. Intraoperative fluoroscopy provided for 1 minute 53 seconds. 11 digital spot image submitted for interpretation initially demonstrates posterior introducer needle approximately thoracolumbar junction. Single epidural lead inserted with tip positioned approximately T7 level. Correlate with intraoperative findings/report. Incidental incompletely visualized lower lumbar fusion hardware.
--- NOTE | 2025-04-20 12:10 | XRAY ---
One minute and 53 seconds of fluoroscopy was used in surgery for a spinal cord stimulator trial.
== END 2025-04-20 09:19 | disposition home or self-care (01) ==
LOC: SDC-PAIN 06:36
PROVIDERS: ATTEND Psychiatry & Neurology Pain Medicine
DX: M96.1 Postlaminectomy syndrome, not elsewhere classified (principal); E11.9 Type 2 diabetes mellitus without complications